=== PATIENT | male | born 1950 | race Caucasian/White ===

== ENCOUNTER → 2021-03-29 | Outpatient (CLI) | payer MEDICARE, BC ==
[~2021-03-29] MED LIST: ALLERGY RELIEF10 M2 PO; ASPIRIN E.C. 8181 MG PO; B COMPLEX1 EACH PO; FLUTICASONE P15.8 ML NS; LIPITOR 40MG TA40 MG PO; MOTRIN IB200 M1 PO; MULTIVITAMINS1 EACH PO; NATURAL IRON65 MG PO; PROTONIX TR40 M1 PO; TOPROL XL 50MG50 MG PO; VIAGRA100 M1 PO
[2021-03-29 08:59] LABS: PROTHROMBIN TIME 12.4 SECONDS (9.0-12.0)
--- NOTE | 2021-03-29 09:17 | NUR ---
ANGELITA, IN LAB, HAS TRIED TO CONTACT PATIENT REGARDING TELEPHONE DISCUSSION WITH DR HOLLOWAY. THE PHONE NUMBER SHE HAD WAS NOT WORKING. THIS NURSE LEAVES MESSAGE WITH PATIENT AT [phone], TO CALL FACILITY. INR UNDER 2.0 AND WILL NEED LOVENOX PER ORDER.
== END ==
LOC: LAB 08:22
PROVIDERS: Internal Medicine Adult Congenital Heart Disease
DX: I63.9 Cerebral infarction, unspecified (principal); I48.91 Unspecified atrial fibrillation; Z79.01 Long term (current) use of anticoagulants

== ENCOUNTER → 2021-03-31 | Outpatient (CLI) | payer MEDICARE, BC ==
[2021-03-31 10:22] LABS: PROTHROMBIN TIME 12.2 SECONDS (9.0-12.0)
== END ==
LOC: LAB 09:31
PROVIDERS: Internal Medicine Adult Congenital Heart Disease
DX: I48.91 Unspecified atrial fibrillation (principal); Z79.01 Long term (current) use of anticoagulants

== ENCOUNTER 2021-04-02 09:25 | Outpatient (RCR) | payer MEDICARE, BC ==
--- NOTE | 2021-03-29 10:30 | NUR ---
Per Dr. Walsh, INR not necessary on 03/30/21. INR as ordered on 03/31/21.
[2021-03-29 11:13] VITALS: BP 149/52
[2021-03-30 09:31] VITALS: BP 124/72
[2021-03-31 12:29] VITALS: BP 136/61
[2021-04-01 13:50] VITALS: BP 120/67
[2021-04-02 09:43] VITALS: BP 111/66
== END 2021-04-02 09:30 | disposition home or self-care (01) ==
LOC: AMSURD 09:25
DX: I63.9 Cerebral infarction, unspecified (principal); I48.91 Unspecified atrial fibrillation; Z79.01 Long term (current) use of anticoagulants
CPT/HCPCS: J1650